=== PATIENT | male | born 1960 | race Hispanic/Latino ===

== ENCOUNTER 2024-08-18 08:30 | Outpatient (CLI) | payer OTHER | END 2024-08-18 08:31 | disposition home or self-care (01) | LOC: CSHSLEEP 08:30 | PROVIDERS: ATTEND Family Medicine | DX: G47.33 Obstructive sleep apnea (adult) (pediatric) (principal); R53.83 Other fatigue; I25.10 Atherosclerotic heart disease of native coronary artery without angina pectoris; I11.9 Hypertensive heart disease without heart failure; R41.89 Other symptoms and signs involving cognitive functions and awareness; R06.83 Snoring; F41.9 Anxiety disorder, unspecified; G47.61 Periodic limb movement disorder | CPT/HCPCS: 95810 ==